=== PATIENT | female | born 1995 | race Caucasian/White ===

== ENCOUNTER → 2021-02-05 15:36 | Outpatient (BNVA) | payer OTHER, SELFPAY | PROVIDERS: PCP Internal Medicine; Visit Provider Obstetrics & Gynecology | DX: E28.2 Polycystic ovarian syndrome (principal); R10.2 Pelvic and perineal pain; N97.9 Female infertility, unspecified | CPT/HCPCS: 81003; 81025; 99202 ==

== ENCOUNTER 2021-02-19 15:39 | Outpatient (REF) | payer OTHER, SELFPAY ==
--- NOTE | ~2021-02-19 | US_ITS ---
EXAMINATION: PELVIC ULTRASOUND CLINICAL INFORMATION: Pelvic and perineal pain COMPARISON: Previous pelvic ultrasound May 2017 TECHNIQUE: Transabdominal and transvaginal pelvic ultrasound was performed. Transvaginal exam was performed for better visualization of the uterus and ovaries. FINDINGS: Uterus is anteverted and measures 5.5 x 2.8 x 3.6 cm in dimension. No focal uterine lesion is seen. Endometrial thickness is normal measuring 0.7 cm. The ovaries are normal in size. The right ovary measures 3.2 x 2.8 x 2.5 cm, volume 12 mL. The left ovary measures 2.6 x 2.6 x 2 cm, volume 7.1 mL. There is polycystic appearance of the ovaries with multiple small peripheral cysts or follicles seen bilaterally. This is similar to previous exam. There is a small amount of fluid in the pelvis adjacent to the right ovary. US/US pelvic and transvaginal IMPRESSION: Normal-appearing uterus. The ovaries are normal in size. These have a polycystic appearance with multiple small peripheral cysts or follicles.
== END 2021-02-19 15:40 | disposition home or self-care (01) ==
LOC: HO.US 15:39
PROVIDERS: Visit Provider Obstetrics & Gynecology
DX: R10.2 Pelvic and perineal pain (principal)
CPT/HCPCS: 76830; 76856

== ENCOUNTER → 2021-03-05 11:19 | Outpatient (BNVA) | payer OTHER, SELFPAY | PROVIDERS: PCP Internal Medicine; Visit Provider Obstetrics & Gynecology ==

== ENCOUNTER 2021-10-09 16:12 | Outpatient (REF) | payer OTHER, SELFPAY ==
--- NOTE | ~2021-10-09 | XR_ITS ---
EXAMINATION: XR CERVICAL SPINE CLINICAL INFORMATION: Neck pain COMPARISON: None TECHNIQUE: 5 views of the cervical spine including bilateral oblique views were obtained. FINDINGS: There are no prevertebral soft tissue or bony abnormalities demonstrated. No compression fractures or subluxations are identified. Alignment is maintained at the atlanto-axial articulation. The disc spaces are preserved. No endplate changes are seen. The prevertebral soft tissues are normal. The foramina are patent. XR/XR cervical spine 4V IMPRESSION: Unremarkable examination.
== END 2021-10-09 16:13 | disposition home or self-care (01) ==
LOC: HO.XRAY 16:12
PROVIDERS: PCP Internal Medicine; Visit Provider Physician Assistant
DX: M54.2 Cervicalgia (principal)
CPT/HCPCS: 72050

== ENCOUNTER 2021-12-04 07:00 | Outpatient (RCR) | payer OTHER, SELFPAY ==
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
--- NOTE | 2021-12-04 09:25 | MHC.PT.DC ---
[facility] [place] Office [place] Office [place] Office [address]ustín Caballero [address] [phone] F: [phone] F: [phone] F: [phone] F: [phone] Physical Therapy Discharge Report Diagnosis: CERVICALGIA- ACUTE WHIPLASH Date of Surgery: Date of Evaluation: 10/18/21 Date of Discharge: 12/04/21 Treatments to Date: 11 Cancellations to Date: 1 No Shows to Date: 1 Discharge Status: Achieved Goals Improved Function Independent with HEP Discharge Summary: Pt HAS PROGRESSED NICELY IN PT - SHE DEMON INDEP W SELF POSTURAL CORRECTION, COMPLIANT W HEP, WFL AROM, AND REDUCED PAIN. HER NPDI SCORE WAS ALSO IMPROVED. WE SIMULATED WORK AND ADLs TO FURTHER REDUCE EXACERBATION OF SXS. Pt HAS MET HER PT GOALS AT THIS TIME AND IS D/C'D FROM PT. Electronically signed by: Janette Whitaker,PT Please sign and return to therapist. Thank you for your referral.
== END 2021-12-04 09:24 | disposition home or self-care (01) ==
LOC: HO.PT 07:00
PROVIDERS: PCP Internal Medicine; Visit Provider Physician Assistant
DX: M54.2 Cervicalgia (principal); V89.2XXD Person injured in unspecified motor-vehicle accident, traffic, subsequent encounter
CPT/HCPCS: 97110; 97140; 97161; 97530